=== PATIENT | male | born 1940 | race Caucasian/White ===

== ENCOUNTER 2017-06-01 18:08 | Emergency (ER) | payer BC ==
[~2017-06-01] VITALS: Ht 182.9 cm; Wt 77.1 kg
[2017-06-01] MEDS ORDERED: AMLO5TAB2 PO (18:17)
--- NOTE | 2017-06-01 18:58 | NUR ---
Patient is AOx4, ambulating to bathroom with a limp 2/2 pains, respiration;easy, pending MD evaluation
[2017-06-01] MEDS ORDERED: SULFAMETH/TRIMETH 800/160 MG TABLET PO ONE (20:30)
--- NOTE | 2017-06-01 20:32 | NUR ---
Patient discharged to home in stable conditon. Written and verbal after care instructions given. Patient verbalizes understanding of instructions.
[2017-06-01] MEDS ORDERED: SULFAMETH/TRIMETH 800/160 MG TABLET ONE (20:36)
[2017-06-01 20:44] VITALS: BP 128/82
== END 2017-06-01 20:46 | disposition home or self-care (01) ==
LOC: ER 18:09
DX: L03.116 Cellulitis of left lower limb (principal); I10 Essential (primary) hypertension
CPT/HCPCS: 93970; 99284; A4663